=== PATIENT | female | born 1990 | race Two or more races ===

== ENCOUNTER 2021-01-06 21:01 | Emergency (ER) | payer OTHER ==
[~2021-01-06] VITALS: Ht 167.6 cm; Wt 68.0 kg
== END 2021-01-06 23:33 | disposition home or self-care (01) ==
LOC: ER 21:01
DX: G40.89 Other seizures (principal)

== ENCOUNTER 2021-01-12 22:06 | Emergency (ER) | payer OTHER ==
[~2021-01-12] VITALS: Ht 167.6 cm; Wt 68.0 kg
== END 2021-01-13 | disposition home or self-care (01) ==
LOC: ER 22:06
DX: G40.89 Other seizures (principal)